=== PATIENT | male | born 1965 | race Asian ===

== ENCOUNTER → 2021-10-06 09:59 | Outpatient (CLI) | payer BC, SELFPAY ==
--- NOTE | 2021-10-06 10:01 | DI.RAD.S_ITS ---
PROCEDURE: XR LUMBAR SPINE 2-3V INDICATIONS: low back pain R>L, hx of injury TECHNIQUE: 3 views of the lumbar spine were acquired. COMPARISON: None. FINDINGS: Bones: 5 [id number] vertebrae are present. There is normal bony alignment. No vertebral body compression fractures. No suspicious bony lesions. The disc heights are relatively well preserved. Lower lumbar spine facet arthropathy is seen. Mild disc space narrowing is seen at L5-S1. The disc heights otherwise appear well-preserved. Soft tissues: Overlying bowel gas pattern is normal. No suspicious soft tissue calcifications. IMPRESSION: No acute abnormality is seen for age. If there is point tenderness (or other clinical suspicion for a fracture not seen on these images) then a dedicated CT could be considered for further evaluation, if clinically appropriate. Age-appropriate degenerative changes are seen, with mild disc space narrowing at L5-S1. Dictated by: Matty Sosa M.D. on 10/06/2021 at 9:14 Approved by: Matty Sosa M.D. on 10/06/2021 at 9:15
== END ==
PROVIDERS: PCP Internal Medicine; Referring Provider Physician Assistant; Visit Provider Physician Assistant
DX: M47.816 Spondylosis without myelopathy or radiculopathy, lumbar region (principal); M48.07 Spinal stenosis, lumbosacral region; M54.50 Low back pain, unspecified
CPT/HCPCS: 72100